=== PATIENT | male | born 2000 | race Caucasian/White ===

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

== ENCOUNTER 2019-12-07 14:22 | Emergency (ER) | payer OTHER ==
[2019-12-07 14:30] VITALS: RESP 18; TEMP 99
--- NOTE | 2019-12-07 17:54 | ED ---
Psych HPI - General Chief Complaint: Psychiatric Symptoms Stated Complaint: Mental Health Time Seen by Provider: 12/07/19 14:38 Source: patient, RN notes reviewed Mode of arrival: ambulatory Limitations: no limitations - History of Present Illness Initial Comments: This a 19-year-old male presents emergency Department chief complaint of depression suicidal ideation. This is an ongoing thing states on Tuesday. Patient is here with mother who is concerned. Patient states that he has missed a few appointments with discomfort. Patient does take psychiatric medications. He denies any plan to harm himself. Patient denies any physical complaints IDEATION. He denies any drug use or alcohol use. - Related Data Home Medications Medication Instructions Recorded Confirmed Sertraline [Zoloft] 100 mg PO DAILY 12/07/19 12/07/19 buPROPion XL [Wellbutrin Xl] 150 mg PO DAILY 12/07/19 12/07/19 Allergies Allergy/AdvReac Type Severity Reaction Status Date / Time No Known Allergies Allergy Verified 12/07/19 16:09 Review of Systems ROS Statement: Those systems with pertinent positive or pertinent negative responses have been documented in the HPI. ROS Other: All systems not noted in ROS Statement are negative. Past Medical History Past Medical History: No Reported History Additional Past Medical History / Comment(s): Crohn's History of Any Multi-Drug Resistant Organisms: None Reported Past Surgical History: Adenoidectomy, Hernia Repair, Tonsillectomy Past Psychological History: ADD/ADHD, Anxiety, Depression Smoking Status: Never smoker Past Alcohol Use History: Occasional Past Drug Use History: None Reported General Exam Limitations: no limitations General appearance: alert, in no apparent distress Head exam: Present: atraumatic, normocephalic, normal inspection Eye exam: Present: normal appearance, PERRL, EOMI. Absent: scleral icterus, conjunctival injection, periorbital swelling Neck exam: Present: normal inspection, full ROM. Absent: tenderness, meningismus, lymphadenopathy Respiratory exam: Present: normal lung sounds bilaterally. Absent: respiratory distress, wheezes, rales, rhonchi, stridor Cardiovascular Exam: Present: regular rate, normal rhythm, normal heart sounds. Absent: systolic murmur, diastolic murmur, rubs, gallop, clicks Neurological exam: Present: alert, oriented X3 Psychiatric exam: Present: depressed Course Vital Signs 12/07/19 14:26 Temperature 99 F Pulse Rate 101 H Respiratory 18 Rate Blood Pressure 132/64 O2 Sat by Pulse 98 Oximetry Medical Decision Making - Medical Decision Making Patient evaluated by EPS case discussed with psychiatrist recommends DC home with safety plan. Disposition Clinical Impression: Depression Disposition: HOME SELF-CARE Condition: Stable Instructions (If sedation given, give patient instructions): Depression (ED) Additional Instructions: Please return to the Emergency Department if symptoms worsen or any other concerns. Is patient prescribed a controlled substance at d/c from ED?: No Referrals: Hugo Landin MD [Primary Care Provider] - 1-2 days Time of Disposition: 18:57
[2019-12-07 19:15] VITALS: BP 127/79; PULSE 82
== END 2019-12-07 19:21 | disposition home or self-care (01) ==
LOC: EC 14:22
DX: F32.9 Major depressive disorder, single episode, unspecified (principal); F41.9 Anxiety disorder, unspecified; Z79.899 Other long term (current) drug therapy
CPT/HCPCS: 82075; 99285

== ENCOUNTER → 2021-01-04 | Outpatient (CLI) | payer OTHER ==
--- NOTE | 2021-01-05 02:46 | MR ---
EXAMINATION TYPE: MR lumbar spine wo/w con DATE OF EXAM: 01/04/2021 COMPARISON: None HISTORY: Chronic lower back pain, RLE radiculopathy. CONTRAST: Standard multiplanar, multisequence MRI departmental protocol utilizing 13 mL intravenous Gadavist ga dolinium contrast. Lumbar vertebra have normal alignment. There is degenerative disc space narrowing to mild degree thro ughout the lumbar spine there is posterior mild disc herniation at L3-4 into the spinal canal. This i s in the midline and towards the right side. There is impingement on the lateral recess. The neural f oramina are fairly well-maintained. There is a small posterior L2-3 disc bulge without significant impingement on the neural elements. There is no lumbar compression fracture. I see no focal bone destruction. There is no lumbar paraspin al mass. The sacroiliac joints appear intact. Contrast images show no pathologic enhancement. IMPRESSION: Posterior central L3-4 lumbar disc herniation extending to the right side. This could be clinically s ignificant in this patient with right side pain. No fracture. Mild degenerative disc space narrowing.
== END | disposition home or self-care (01) ==
LOC: RADMRIMAIN 14:22
PROVIDERS: ATTEND Internal Medicine
DX: M51.16 Intervertebral disc disorders with radiculopathy, lumbar region (principal)
CPT/HCPCS: 72158; A9585

== ENCOUNTER 2022-05-07 13:45 | Emergency (ER) | payer OTHER ==
[2022-05-07 13:57] VITALS: TEMP 98
[2022-05-07] MEDS ORDERED: KETOROLAC 15 MG/ML 1 ML VIAL IVP STA (14:22)
[2022-05-07] MEDS ORDERED: MORPHINE SULFATE 2 MG/ML SYRINGE IVP STA (14:23)
[2022-05-07 14:43] LABS: Basophils # (A) 0.1 k/uL (0-0.2); Basophils % (A) 1 %; Eosinophils # (A) 0.4 k/uL (0-0.7); Eosinophils % (A) 4 %; HCT 49.3 % (39.0-53.0); HGB 17.5 gm/dL (13.0-17.5); Lymphocytes # (A) 2.9 k/uL (1.0-4.8); Lymphocytes % (A) 30 %; MCH 29.1 pg (25.0-35.0); MCHC 35.5 g/dL (31.0-37.0); MCV 82.1 fL (80.0-100.0); Mean Platelet Volume 8.6; Monocytes # (A) 0.4 k/uL (0-1.0); Monocytes % (A) 4 %; Neutrophils # (A) 5.7 k/uL (1.3-7.7); Neutrophils % (A) 59 %; Platelet Count 174 k/uL (150-450); RBC 6.01 m/uL (4.30-5.90); RDW 12.9 % (11.5-15.5); WBC 9.7 k/uL (3.8-10.6)
[2022-05-07 14:49] VITALS: PULSE 100; RESP 20
[2022-05-07 15:01] LABS: ALT 51 U/L (4-49); AST 34 U/L (17-59); African American GFR (CKD) >90 (>60 ml/min/1.73 sqM); Albumin 4.9 g/dL (3.5-5.0); Alkaline Phosphatase 80 U/L (38-126); Amylase 75 U/L (30-110); Anion Gap 6 mmol/L; Blood Urea Nitrogen 7 mg/dL (9-20); C Reactive Protein 0.6 mg/dL (<1.0); Calcium 9.3 mg/dL (8.4-10.2); Carbon Dioxide 30 mmol/L (22-30); Chloride 103 mmol/L (98-107); Glucose 94 mg/dL (74-99); Lipase 170 U/L (23-300); Non-African American GFR(CKD) >90 (>60 ml/min/1.73 sqM); Potassium 4.4 mmol/L (3.5-5.1); Sodium 139 mmol/L (137-145); Total Bilirubin 0.7 mg/dL (0.2-1.3); Total Protein 7.7 g/dL (6.3-8.2)
[2022-05-07 15:02] LABS: Appearance,Urine Clear (Clear); Bilirubin,Urine Negative (Negative); Blood,Urine Negative (Negative); Color,Urine Yellow; Glucose,Urine (UA) Negative (Negative); Ketones,Urine Negative (Negative); Leukocyte Esterase,Urine Negative (Negative); Nitrite,Urine Negative (Negative); Protein,Urine Negative (Negative); Specific Gravity,Urine 1.018 (1.001-1.035); Urobilinogen,Urine <2.0 mg/dL (<2.0)
--- NOTE | 2022-05-07 15:43 | CT ---
EXAMINATION TYPE: CT abdomen pelvis w con DATE OF EXAM: 05/07/2022 COMPARISON: Prior CT June 09, 2015 HISTORY: Left lower quadrant abdominal pain, hx of Crohn's. CT DLP: 2086.5 mGycm, Automated Exposure Control for Dose Reduction was Utilized. CONTRAST: CT scan of the abdomen and pelvis is performed without oral but with with IV Contrast, patient inject ed with 100 mL of Isovue 300. FINDINGS: LUNG BASES: No significant abnormality is appreciated. LIVER/GB: Liver size upper limits of normal. PANCREAS: No significant abnormality is seen. SPLEEN: Mild splenomegaly at 14.3 cm long axis coronal image 62. ADRENALS: No significant abnormality is seen. KIDNEYS: Symmetric corticomedullary uptake and excretion without concerning solid or cystic renal mas s or hydronephrosis seen bilaterally. There is 1 to 2 mm calculus mid pole level left kidney axial im age 37 on current study. BOWEL: Suboptimal evaluation without enteric contrast. Stomach poorly distended and thus suboptimally evaluated. No suspicious small or large bowel dilatation is seen. Low-lying cecum into the right pel vis is present. Terminal ileum thought within normal limits coronal image 42. PROSTATE/SEMINAL VESICLES: No gross abnormality seen. LYMPH NODES: Mild to minimal fat stranding throughout the mesentery with prominent but subcentimeter lymph nodes is identified current exam. OSSEOUS STRUCTURES: Underlying scoliotic curvature redemonstrated. Mild facet arthropathy lower lumba r spine. OTHER: No significant additional abnormality is seen. IMPRESSION: Suboptimal study without enteric contrast. No bowel obstruction is present. Isabela mesente ry appearance is suggestive of mesenteric panniculitis. Correlate clinically. Otherwise no acute find ings are evident.
[2022-05-07] MEDS ORDERED: ACET/COD 300 MG/30 MG STARTER PACK 6 TAB BTL PO STA (16:12)
[2022-05-07] MEDS ORDERED: methylPREDNISolone SOD SUCCI 125 MG/2 ML VIAL IV STA (16:18)
--- NOTE | 2022-05-07 16:18 | ED ---
Abdominal Pain HPI - General Chief Complaint: Abdominal Pain Stated Complaint: pain Time Seen by Provider: 05/07/22 14:17 Source: patient, RN notes reviewed Mode of arrival: ambulatory Limitations: no limitations - History of Present Illness Initial Comments: This is a 21-year-old male who presents to the emergency department for abdominal pain. Patient states that he has a past medical history of Crohn's disease, which he was diagnosed with approximately 5-6 years ago. He has been in remission for around 2 years, however over the last couple of months, he started to develop increasing abdominal pain again. This morning, he had to leave work early due to the pain. Also reports associated nausea, which has since improved. Denies any constipation, diarrhea, or blood in his bowel movements. 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 He cannot recall which glue specialty supervisor this is. Denies any fevers, chills, sore throat, cough, dyspnea, chest pain, palpitations, vomiting, diarrhea, back pain, or headaches. MD Complaint: abdominal pain Associated Symptoms: nausea - Related Data Home Medications Medication Instructions Recorded Confirmed Sertraline [Zoloft] 100 mg PO DAILY 12/07/19 12/07/19 buPROPion XL [Wellbutrin Xl] 150 mg PO DAILY 12/07/19 12/07/19 Previous Rx's Medication Instructions Recorded Ondansetron Odt [Zofran Odt] 4 mg PO Q8HR PRN #15 tab 05/07/22 predniSONE 50 mg PO DAILY 5 Days #5 tab 05/07/22 Allergies Allergy/AdvReac Type Severity Reaction Status Date / Time No Known Allergies Allergy Verified 05/07/22 13:57 Review of Systems ROS Statement: Those systems with pertinent positive or pertinent negative responses have been documented in the HPI. ROS Other: All systems not noted in ROS Statement are negative. Past Medical History Past Medical History: No Reported History Additional Past Medical History / Comment(s): Crohn's History of Any Multi-Drug Resistant Organisms: None Reported Past Surgical History: Adenoidectomy, Hernia Repair, Tonsillectomy Past Psychological History: ADD/ADHD, Anxiety, Depression Smoking Status: Never smoker Past Alcohol Use History: Occasional Past Drug Use History: Marijuana General Exam Limitations: no limitations General appearance: alert, in no apparent distress Head exam: Present: atraumatic, normocephalic, normal inspection Respiratory exam: Present: normal lung sounds bilaterally. Absent: respiratory distress, wheezes, rales, rhonchi, stridor Cardiovascular Exam: Present: regular rate, normal rhythm, normal heart sounds. Absent: systolic murmur, diastolic murmur, rubs, gallop, clicks GI/Abdominal exam: Present: soft, tenderness (LLQ and periumbilical), normal bowel sounds. Absent: distended Neurological exam: Present: alert, oriented X3, CN II-XII intact Psychiatric exam: Present: normal affect, normal mood Skin exam: Present: warm, dry, intact, normal color. Absent: rash Course Vital Signs 05/07/22 05/07/22 13:54 14:48 Temperature 98 F Pulse Rate 80 100 Respiratory 22 20 Rate Blood Pressure 109/75 110/70 O2 Sat by Pulse 99 98 Oximetry Medical Decision Making - Medical Decision Making This is a 21-year-old male who presents to the emergency department for abdominal pain. Was pt. sent in by a medical professional or institution? @ -No Did you speak to anyone other than the patient for history? @ -No Did you review nursing and triage notes? @ -Yes, and I agree, it is accurate with regards to the patient's symptoms. Were old charts reviewed? @ -No Differential Diagnosis? @ -Differential Abdominal Pain Men: Appendicitis, cholecystitis, diverticulosis, ischemic bowel, pancreatitis, hepatitis, UTI, gastroenteritis, AAA, incarcerated hernia, bowel obstruction, constipation, inflammatory bowel, hepatitis, peptic ulcer disease, splenic infarction, perforated viscus, testicular torsion, this is not meant to be an all-inclusive list CT interpreted by me (1pt min.)? @ -Computed tomography scan of the abdomen and pelvis obtained. My interpretation identifies no evidence of bowel wall thickening or dilation. What testing was considered but not performed? (CT, X-rays, U/S, labs)? Why? @ -None What meds were considered but not given? Why? @ -None Did you discuss the management of the patient with other professionals? @ -No Did you reconcile home meds? @ -No Was smoking cessation discussed for >3mins.? @ -No Was critical care preformed (if so, how long)? @ -No Were there social determinants of health that impacted care today? How? (Homelessness, low income, unemployed, alcoholism, drug addiction, transportation, low edu. Level, literacy, decrease access to med. care, snf, rehab)? @ -No Was there de-escalation of care discussed even if they declined? (Discuss DNR or withdrawal of care, Hospice)? @ -No What co-morbidities impacted this encounter? (DM, HTN, Smoking, COPD, CAD, Cancer, CVA, Hep., AIDS, mental health diagnosis, sleep apnea, morbid obesity)? @ -Crohn's disease, morbid obesity Was patient admitted / discharged? @ -Discharged. Lab work obtained and found to be nonactionable. His symptoms were well controlled in the emergency department with Toradol and morphine. Computed tomography scan of the abdomen and pelvis obtained, the radiologist makes note of a possible mesenteric panniculitis. Advised to alternate with ibuprofen and Tylenol for pain relief. Prescription for Zofran provided with dosing instructions reviewed for any additional nausea or vomiting. He is advised to slowly advance his diet as tolerated and remain well-hydrated. Instructed him to see if he can get a sooner appointment with the glue specialty supervisor for ongoing management of crohn's disease. Undiagnosed new problem with uncertain prognosis? @ -None Drug Therapy requiring intensive monitoring for toxicity (Heparin, Nitro, Insulin, Cardizem)? @ -None Were any procedures done? @ -None Diagnosis/symptom? @ -Mesenteric panniculitis Acute, or Chronic, or Acute on Chronic? @ -Acute Uncomplicated (without systemic symptoms) or Complicated (systemic symptoms)? @ -Complicated Side effects of treatment? @ -None Exacerbation, Progression, or Severe Exacerbation] @ -Not applicable Poses a threat to life or bodily function? @ -Yes, the pain is affecting his ability to work. Return precautions reviewed in depth, the patient is instructed to return to the emergency department with any new, worsening, or concerning symptoms. Patient verbalized understanding. This case was discussed in detail with the attending ED physician, Dr. Vieira. Presentation, findings, and treatment plan discussed in detail as well. - Lab Data Result diagrams: 05/07/22 14:35 05/07/22 14:35 Lab Results 05/07/22 05/07/22 05/07/22 Range/Units 14:35 14:35 14:44 WBC 9.7 (3.8-10.6) k/uL RBC 6.01 H (4.30-5.90) m/uL Hgb 17.5 (13.0-17.5) gm/dL Hct 49.3 (39.0-53.0) % MCV 82.1 (80.0-100.0) fL MCH 29.1 (25.0-35.0) pg MCHC 35.5 (31.0-37.0) g/dL RDW 12.9 (11.5-15.5) % Plt Count 174 (150-450) k/uL MPV 8.6 Neutrophils % 59 % Lymphocytes % 30 % Monocytes % 4 % Eosinophils % 4 % Basophils % 1 % Neutrophils # 5.7 (1.3-7.7) k/uL Lymphocytes # 2.9 (1.0-4.8) k/uL Monocytes # 0.4 (0-1.0) k/uL Eosinophils # 0.4 (0-0.7) k/uL Basophils # 0.1 (0-0.2) k/uL Sodium 139 (137-145) mmol/L Potassium 4.4 (3.5-5.1) mmol/L Chloride 103 (98-107) mmol/L Carbon Dioxide 30 (22-30) mmol/L Anion Gap 6 mmol/L BUN 7 L (9-20) mg/dL Creatinine 0.80 (0.66-1.25) mg/dL Est GFR (CKD-EPI)AfAm >90 (>60 ml/min/1.73 sqM) Est GFR (CKD-EPI)NonAf >90 (>60 ml/min/1.73 sqM) Glucose 94 (74-99) mg/dL Calcium 9.3 (8.4-10.2) mg/dL Total Bilirubin 0.7 (0.2-1.3) mg/dL AST 34 (17-59) U/L ALT 51 H (4-49) U/L Alkaline Phosphatase 80 (38-126) U/L C-Reactive Protein 0.6 (<1.0) mg/dL Total Protein 7.7 (6.3-8.2) g/dL Albumin 4.9 (3.5-5.0) g/dL Amylase 75 (30-110) U/L Lipase 170 (23-300) U/L Urine Color Yellow Urine Appearance Clear (Clear) Urine pH 6.0 (5.0-8.0) Ur Specific [place] 1.018 (1.001-1.035) Urine Protein Negative (Negative) Urine Glucose (UA) Negative (Negative) Urine Ketones Negative (Negative) Urine Blood Negative (Negative) Urine Nitrite Negative (Negative) Urine Bilirubin Negative (Negative) Urine Urobilinogen <2.0 (<2.0) mg/dL Ur Leukocyte Esterase Negative (Negative) - Radiology Data Radiology results: report reviewed, image reviewed Disposition Clinical Impression: Mesenteric panniculitis Disposition: HOME SELF-CARE Instructions (If sedation given, give patient instructions): Crohn Disease (ED), Abdominal Pain (ED) Additional Instructions: Return to the emergency department with any new, worsening, or concerning symptoms. You can take the Zofran up to every 8 hours as needed for nausea and vomiting. Follow up with your primary care provider in 1-2 days and make sure to follow up with your glue specialty supervisor as soon as possible. Is patient prescribed a controlled substance at d/c from ED?: No Referrals: Buddy Burt MD [Primary Care Provider] - 1-2 days
[2022-05-07 16:24] VITALS: BP 120/75
[2022-05-07 17:12] LABS: Erythrocyte Sedimentation Rate 2 mm/hr (0-15)
== END 2022-05-07 16:37 | disposition home or self-care (01) ==
LOC: EC 13:45
DX: K65.4 Sclerosing mesenteritis (principal); F90.9 Attention-deficit hyperactivity disorder, unspecified type; F41.9 Anxiety disorder, unspecified; F12.90 Cannabis use, unspecified, uncomplicated; F32.A Depression, unspecified
CPT/HCPCS: 36415; 80053; 85652; 82150; 83690; 85025; 86140; 81003; 74177; 99284; 96374; 96375 ×2; J2930; J2270; J1885; Q9967

== ENCOUNTER → 2022-12-02 | Outpatient (CLI) | payer OTHER ==
--- NOTE | 2022-12-02 11:07 | US ---
EXAMINATION TYPE: US liver DATE OF EXAM: 12/02/2022 COMPARISON: CT 05/07/2022 CLINICAL INDICATION: Male, 22 years old with history of R74.01 ELEVATION OF LEVELS OF LIVER TRANSAMIN ASE L; Elevated transaminase level, hx of Chron' s disease. TECHNIQUE: Multiple sonographic images of the right upper quadrant are obtained. FINDINGS: EXAM MEASUREMENTS: Liver Length: 20.2 cm Gallbladder Wall: 0.3 cm CBD: Obscured Right Kidney: 13.0 x 6.3 x 4.3 cm [employer] PROFESSOR NOTES: Extremely limited exam due to gas and patient body habitus. Pancreas: Not well seen. Liver: Limited. Enlarged. Appears very coarse with increased echogenicity and attenuation. Gallbladder: Folds seen. Evidence for sonographic Lujan's sign: No CBD: Obscured Right Kidney: Enlarged. IMPRESSION: 1. Thyromegaly with underlying hepatic steatosis suggested.
== END | disposition home or self-care (01) ==
LOC: RADUSWWP 10:28
PROVIDERS: ATTEND Internal Medicine
DX: E01.0 Iodine-deficiency related diffuse (endemic) goiter (principal); R74.01 Elevation of levels of liver transaminase levels; Z87.19 Personal history of other diseases of the digestive system
CPT/HCPCS: 76705